=== PATIENT | male | born 1995 | race Caucasian/White ===

== ENCOUNTER 2022-04-07 05:02 | Emergency (ER) | payer BC, MEDICAID ==
[~2022-04-07] VITALS: Ht 170.2 cm; Wt 90.7 kg
[2022-04-07 05:13] VITALS: BP 127/60
--- NOTE | 2022-04-07 05:18 | NUR ---
pt ambulatory to bed 09.
--- NOTE | 2022-04-07 06:00 | NUR ---
MD COCHRAN AT BEDSIDE. PT EXPLAINED SYMPTOMS, COVID AND FLU TESTS ORDERED WELL LABS WHICH WERE DRAWN AT BEDSIDE.
[2022-04-07 06:44] LABS: BASOPHILS # (AUTO) 0.1 K/uL (0.00-0.22); BASOPHILS % (AUTO) 0.8 % (0.0-2.0); EOSINOPHILS % (AUTO) 0.6 % (0.0-4.0); HEMATOCRIT 42.7 % (36-52); HEMOGLOBIN 14.3 g/dL (12.0-18.0); LYMPHOCYTES % (AUTO) 27.6 % (20.5-51.1); MEAN CORPUSCULAR HEMOGLOBIN 27 pg (27-31); MEAN CORPUSCULAR HGB CONC 34 g/dL (33-37); MEAN CORPUSCULAR VOLUME 78.8 fL (80-94); MONOCYTES # (AUTO) 0.4 K/uL (0.8-1.0); MONOCYTES % (AUTO) 5.1 % (1.7-9.3); NEUTROPHILS # (AUTO) 4.8 K/uL (1.8-7.7); NEUTROPHILS % (AUTO) 65.9 % (42.2-75.2); PLATELET COUNT (AUTO) 222 K/uL (140-450); RED BLOOD CELL COUNT(AUTO) 5.42 MIL/uL (4.20-6.10); RED CELL DISTRIBUTION WIDTH 15.1 % (11.6-13.7); WHITE BLOOD COUNT (AUTO) 7.3 K/uL (4.8-10.8)
[2022-04-07 07:06] LABS: ALBUMIN 3.9 g/dL (3.4-5.0); ANION GAP 11.2 (8-16); CARBON DIOXIDE 25.4 mmol/L (21-32); POTASSIUM 3.6 mmol/L (3.5-5.1); TOTAL BILIRUBIN 0.6 mg/dL (0.0-1.0)
[2022-04-07 08:43] VITALS: BP 127/60
--- NOTE | 2022-04-07 08:43 | NUR ---
Patient discharged with v/s stable. Written and verbal after care instructions given and explained. Patient verbalized understanding. Ambulatory with steady gait. All questions addressed prior to discharge. Advised to follow up with PMD. copy of labs given, work note given
== END 2022-04-07 08:43 | disposition home or self-care (01) ==
LOC: MED 05:02
DX: M79.10 Myalgia, unspecified site (principal); Z20.822 Contact with and (suspected) exposure to COVID-19; R53.1 Weakness; R10.9 Unspecified abdominal pain; M54.9 Dorsalgia, unspecified; R20.0 Anesthesia of skin
CPT/HCPCS: 36415; 80053; 83690; 85025; 86592; 86803; 99283

== ENCOUNTER 2022-04-11 12:29 | Emergency (ER) | payer BC ==
[~2022-04-11] VITALS: Ht 170.2 cm; Wt 92.1 kg
[2022-04-11 12:48] VITALS: BP 123/69
[2022-04-11 12:51] VITALS: BP 123/69
== END 2022-04-11 12:53 | disposition left against medical advice (07) ==
LOC: MED 12:29
DX: M25.561 Pain in right knee (principal); Z53.21 Procedure and treatment not carried out due to patient leaving prior to being seen by health care provider

== ENCOUNTER 2022-04-11 23:44 | Emergency (ER) | payer BC ==
[~2022-04-11] VITALS: Ht 170.2 cm; Wt 92.1 kg
[2022-04-12] MEDS ORDERED: LORazepam 1 MG TAB PO ONE (00:05)
== END 2022-04-12 00:50 | disposition home or self-care (01) ==
LOC: MED 23:44
DX: R06.4 Hyperventilation (principal); F41.9 Anxiety disorder, unspecified
CPT/HCPCS: 99283

== ENCOUNTER 2022-11-09 18:51 | Emergency (ER) | payer BC ==
[~2022-11-09] VITALS: Ht 170.2 cm; Wt 88.0 kg
[2022-11-09 19:05] VITALS: BP 130/72
--- NOTE | 2022-11-09 19:08 | NUR ---
TO LOBBY A/W BED AMBULATORY
--- NOTE | 2022-11-09 19:23 | NUR ---
SEEN AND EXAMINED BY WILBERT
[2022-11-09] MEDS ORDERED: KETOROLAC 30 MG/ML VIAL IM ONE (19:35)
[2022-11-09 19:48] LABS: APPEARANCE,URINE CLEAR (CLEAR); BILIRUBIN,URINE NEGATIVE (NEGATIVE); BLOOD, URINE NEGATIVE (NEGATIVE); COLOR,URINE YELLOW (YELLOW); LEUKOCYTE ESTERASE ,URINE NEGATIVE (NEGATIVE); NITRITE, URINE NEGATIVE (NEGATIVE); PH,URINE 6.5 (5.0-9.0); UGLUCOSE NEGATIVE (NEGATIVE)
[2022-11-09 19:48] LABS: BASOPHILS # (AUTO) 0.1 K/uL (0.00-0.22); BASOPHILS % (AUTO) 0.9 % (0.0-2.0); EOSINOPHILS # (AUTO) 0.1 K/uL (0-0.4); EOSINOPHILS % (AUTO) 1.2 % (0.0-4.0); HEMATOCRIT 43.8 % (36-52); LYMPHOCYTES # (AUTO) 3.3 K/uL (2.0-11.5); LYMPHOCYTES % (AUTO) 33.1 % (20.5-51.1); MEAN CORPUSCULAR HEMOGLOBIN 26 pg (27-31); MEAN CORPUSCULAR HGB CONC 34 g/dL (33-37); MEAN CORPUSCULAR VOLUME 76.6 fL (80-94); MONOCYTES # (AUTO) 0.5 K/uL (0.8-1.0); MONOCYTES % (AUTO) 5.1 % (1.7-9.3); NEUTROPHILS # (AUTO) 5.9 K/uL (1.8-7.7); NEUTROPHILS % (AUTO) 59.7 % (42.2-75.2); PLATELET COUNT (AUTO) 262 K/uL (140-450); RED BLOOD CELL COUNT(AUTO) 5.71 MIL/uL (4.20-6.10); RED CELL DISTRIBUTION WIDTH 14.7 % (11.6-13.7); WHITE BLOOD COUNT (AUTO) 9.9 K/uL (4.8-10.8)
[2022-11-09 20:01] LABS: ALBUMIN 4.3 g/dL (3.4-5.0); ANION GAP 12.5 (8-16); CARBON DIOXIDE 30.6 mmol/L (21-32); POTASSIUM 4.1 mmol/L (3.5-5.1); TOTAL BILIRUBIN 0.4 mg/dL (0.0-1.0)
[2022-11-10] MEDS ORDERED: ALUMINUM HYD/MAG/SIMETHICONE 30 ML UDC PO ONE (02:10)
[2022-11-10] MEDS ORDERED: FAMOTIDINE 20 MG TAB PO ONE (02:10)
[2022-11-10] MEDS ORDERED: SUCR1TAB35 PO (02:13)
[2022-11-10] MEDS ORDERED: FAMO-90 PO (02:13)
[2022-11-10 02:30] VITALS: BP 118/79
--- NOTE | 2022-11-10 02:30 | NUR ---
Patient discharged with v/s stable. Written and verbal after care instructions given and explained. Patient alert, oriented and verbalized understanding of instructions. Ambulatory with steady gait. All questions addressed prior to discharge. ID band removed. Patient advised to follow up with PMD. Rx of PEPCID,CARAFATE given. Patient educated on indication of medication including possible reaction and side effects. Opportunity to ask questions provided and answered.
== END 2022-11-10 02:30 | disposition home or self-care (01) ==
LOC: MED 18:51
DX: R10.13 Epigastric pain (principal); R11.0 Nausea
CPT/HCPCS: 36415; 76705; 80053; 81003; 83690; 85025; 96372; 99284; J1885; Q0092

== ENCOUNTER 2023-04-28 10:21 | Emergency (ER) | payer BC ==
[~2023-04-28] VITALS: Ht 170.2 cm; Wt 90.7 kg
[~2023-04-28 10:21] MED LIST: FAMO-90 PO; SUCR1TAB35 PO
[2023-04-28 10:27] VITALS: BP 121/76; PULSE 84; RESP 17; TEMP 98.5; O2SAT 98
--- NOTE | 2023-04-28 10:30 | NUR ---
pt ambulatory to bed 04
[2023-04-28 10:39] VITALS: O2SAT 98
--- NOTE | 2023-04-28 10:43 | NUR ---
PATIENT PRESENTS TO ED WITH ABD PAIN . PT STATES PAIN HAS BEEN CONSISTENT SINCE YESTERDAY. PT STATES PAIN RADIATES FROM RIGHT SIDE TO LOWER POSTEIOR FLANK PAIN. PT STATES HE HAS NAUSEA NO VOMITING OR DIARREHA. PT STATES HE TAKING TYLENOL YESTERDAY AND PAIN HAS NOT BEEN ELIVATED. SKIN IS PINK/WARM/DRY; AAOX4 WITH EVEN AND STEADY GAIT; LUNGS CLEAR BL; HR EVEN AND REGULAR; PT DENIES ANY FEVER, CP, SOB, OR COUGH AT THIS TIME; PATIENT STATES PAIN OF 7/10 AT THIS TIME; VSS; PATIENT POSITIONED FOR COMFORT; HOB ELEVATED; BEDRAILS UP X2; BED DOWN. ER MD MADE AWARE OF PT STATUS. NO KNOWN PREVIOUS HISTORY.
[2023-04-28] MEDS ORDERED: KETOROLAC 15 MG/ML VIAL IVP ONE (11:05)
[2023-04-28] MEDS ORDERED: ONDANSETRON 4 MG/2 ML VIAL IVP ONE (11:05)
--- NOTE | 2023-04-28 11:25 | NUR ---
pt wheeled to radiology for CT scan
[2023-04-28 11:36] LABS: BASOPHILS # (AUTO) 0.1 K/uL (0.00-0.22); EOSINOPHILS % (AUTO) 0.6 % (0.0-4.0); HEMATOCRIT 42.5 % (36-52); HEMOGLOBIN 14.8 g/dL (12.0-18.0); LYMPHOCYTES # (AUTO) 0.9 K/uL (2.0-11.5); LYMPHOCYTES % (AUTO) 10.2 % (20.5-51.1); MEAN CORPUSCULAR HEMOGLOBIN 27 pg (27-31); MEAN CORPUSCULAR HGB CONC 35 g/dL (33-37); MEAN CORPUSCULAR VOLUME 76.3 fL (80-94); MONOCYTES # (AUTO) 0.4 K/uL (0.8-1.0); MONOCYTES % (AUTO) 4.5 % (1.7-9.3); NEUTROPHILS # (AUTO) 7.3 K/uL (1.8-7.7); NEUTROPHILS % (AUTO) 83.7 % (42.2-75.2); PLATELET COUNT (AUTO) 188 K/uL (140-450); RED BLOOD CELL COUNT(AUTO) 5.56 MIL/uL (4.20-6.10); RED CELL DISTRIBUTION WIDTH 14.5 % (11.6-13.7); WHITE BLOOD COUNT (AUTO) 8.7 K/uL (4.8-10.8)
--- NOTE | 2023-04-28 11:38 | NUR ---
pt has been medicated per providers orders. pt has right side iv 20 g ac. pt tolerated well. pt taken to ct.
[2023-04-28 11:54] LABS: ALBUMIN 3.9 g/dL (3.4-5.0); ANION GAP 12.5 (8-16); CARBON DIOXIDE 29.9 mmol/L (21-32); CREATININE 1.1 mg/dL (0.6-1.3); POTASSIUM 3.4 mmol/L (3.5-5.1)
[2023-04-28 12:05] LABS: APPEARANCE,URINE CLEAR (CLEAR); BILIRUBIN,URINE NEGATIVE (NEGATIVE); BLOOD, URINE NEGATIVE (NEGATIVE); COLOR,URINE YELLOW (YELLOW); LEUKOCYTE ESTERASE ,URINE NEGATIVE (NEGATIVE); NITRITE, URINE NEGATIVE (NEGATIVE); PH,URINE 6.5 (5.0-9.0); UGLUCOSE NEGATIVE (NEGATIVE)
[2023-04-28] MEDS ORDERED: NAPR-1704 PO (12:06)
[2023-04-28] MEDS ORDERED: ONDA-188 PO (12:06)
--- NOTE | 2023-04-28 13:00 | NUR ---
IV removed, catheter intact and site benign. Applied folded 4x4 gauze and tape to stop bleeding.
[2023-04-28 13:06] VITALS: BP 120/75; PULSE 85; RESP 18; TEMP 98.6; O2SAT 98
--- NOTE | 2023-04-28 13:06 | NUR ---
Patient discharged with v/s stable. Written and verbal after care instructions given and explained. Patient alert, oriented and verbalized understanding of instructions. Ambulatory with steady gait. All questions addressed prior to discharge. ID band removed. Patient advised to follow up with PMD. Rx of zofran, naproxyn given. Patient educated on indication of medication including possible reaction and side effects. Opportunity to ask questions provided and answered.
== END 2023-04-28 13:06 | disposition home or self-care (01) ==
LOC: MED 10:21
DX: I88.0 Nonspecific mesenteric lymphadenitis (principal); F12.90 Cannabis use, unspecified, uncomplicated; Z79.899 Other long term (current) drug therapy; Z79.1 Long term (current) use of non-steroidal anti-inflammatories (NSAID)
CPT/HCPCS: 36415; 74176; 80053; 81003; 85025; 96374; 96375; 99285; J1885; J2405

== ENCOUNTER 2024-07-03 15:12 | Emergency (ER) | payer BC ==
[~2024-07-03] VITALS: Ht 167.6 cm; Wt 90.5 kg
[~2024-07-03 15:12] MED LIST changes: +NAPR-1704 PO; +ONDA-188 PO; +SUCR-3 PO; -SUCR1TAB35 PO
[2024-07-03 15:38] VITALS: BP 105/63; PULSE 111; RESP 18; TEMP 98.6; O2SAT 95
[2024-07-03] MEDS ORDERED: ONDA-188 SL (16:18)
[2024-07-03] MEDS ORDERED: ACET500T99 PO (16:18)
[2024-07-03] MEDS ORDERED: IBUP-2218 PO (16:18)
[2024-07-03] MEDS ORDERED: IMO2 PO (16:18)
[2024-07-03 16:25] LABS: FLU A ANTIGEN NEGATIVE (NEGATIVE); FLU B ANTIGEN NEGATIVE (NEGATIVE)
[2024-07-03] MEDS: ONDANSETRON 4 MG ODT PO ONE (16:41)
[2024-07-03] MEDS: KETOROLAC 30 MG/ML VIAL IM ONE (16:42)
[2024-07-03 17:11] VITALS: BP 105/63; PULSE 111; RESP 18; TEMP 98.6; O2SAT 95
== END 2024-07-03 17:10 | disposition home or self-care (01) ==
LOC: MED 15:12
DX: M79.10 Myalgia, unspecified site (principal); R50.9 Fever, unspecified; R09.81 Nasal congestion; Z20.822 Contact with and (suspected) exposure to COVID-19; Z79.1 Long term (current) use of non-steroidal anti-inflammatories (NSAID); Z79.899 Other long term (current) drug therapy
CPT/HCPCS: 82948; 96372; 99283; J1885; Q0162